=== PATIENT | male | born 1955 | race Caucasian/White ===

== ENCOUNTER 2018-06-14 13:07 | Outpatient (CLI) | payer BC ==
--- NOTE | 2018-06-14 15:33 | RAD ---
PA AND LATERAL CHEST X-RAY: 06/14/2018 HISTORY: Wheezing. COMPARISON: 10/05/2013 FINDINGS: The cardiac silhouette is at the upper limits of normal to borderline enlarged. The pulmonary vascul ature is within normal limits. There is mild symmetric biapical pleural thickening noted. There is minimal patchy density at the left lung base, which could be related to atelectasis, but developing p neumonitis cannot be excluded. There is minimal linear scarring versus atelectasis at the right lung base. A tiny nodular density overlies the right upper lung zone, stable from prior study, and may r epresent a small calcified granuloma. There has been no other interval change. IMPRESSION: Patchy increased density, left lung base, which could be related to either atelectasis or developing area of pneumonitis. Follow-up evaluation is recommended to ensure resolution. POS: STEPHANIE
== END 2018-06-14 13:08 | disposition home or self-care (01) ==
LOC: RAD-FRANK 13:07
PROVIDERS: ATTEND Nurse Practitioner Family
DX: R06.2 Wheezing (principal); R68.89 Other general symptoms and signs; F17.200 Nicotine dependence, unspecified, uncomplicated; R05 Cough; R91.8 Other nonspecific abnormal finding of lung field
CPT/HCPCS: 71046

== ENCOUNTER 2018-07-05 10:29 | Outpatient (CLI) | payer BC ==
--- NOTE | 2018-07-05 13:05 | RAD ---
CHEST TWO VIEWS: HISTORY: Cough. COMPARISON: 06/14/2018 FINDINGS: Heart size is normal. Lungs are clear. Mild biapical pleural thickening. The previously noted mini mal parenchymal changes in the left lower lobe have resolved. IMPRESSION: No significant acute intrathoracic disease. POS: [facility]
== END 2018-07-05 10:30 | disposition home or self-care (01) ==
LOC: RAD-FRANK 10:29
PROVIDERS: ATTEND Nurse Practitioner Family
DX: J18.9 Pneumonia, unspecified organism (principal); R05 Cough; F17.200 Nicotine dependence, unspecified, uncomplicated
CPT/HCPCS: 71046

== ENCOUNTER 2021-04-05 12:02 | Outpatient (CLI) | payer MEDICARE, BC | END 2021-04-05 12:03 | disposition home or self-care (01) | LOC: BICRAD 12:02 | PROVIDERS: ATTEND Specialist | DX: R09.1 Pleurisy (principal) | CPT/HCPCS: 71046 ==

== ENCOUNTER 2021-04-09 08:37 | Outpatient (CLI) | payer BC, MEDICARE ==
[2021-04-09] MEDS ORDERED: Iopamidol 370 76% 100 ML VIAL ONE (08:43)
== END 2021-04-09 08:38 | disposition home or self-care (01) ==
LOC: CT 08:37
PROVIDERS: ATTEND Specialist
DX: R91.8 Other nonspecific abnormal finding of lung field (principal); I25.10 Atherosclerotic heart disease of native coronary artery without angina pectoris; J90 Pleural effusion, not elsewhere classified; J98.11 Atelectasis
CPT/HCPCS: 71260; 82565; Q9967

== ENCOUNTER 2023-11-05 13:53 | Outpatient (CLI) | payer BC, MEDICARE | END 2023-11-05 13:54 | disposition home or self-care (01) | LOC: BICCT 13:53 | PROVIDERS: ATTEND Physician Assistant Medical | DX: R10.13 Epigastric pain (principal); R14.0 Abdominal distension (gaseous); R19.7 Diarrhea, unspecified | CPT/HCPCS: 74160; 82565 ==

== ENCOUNTER 2024-01-06 10:56 | Outpatient (CLI) | payer BC, MEDICARE | END 2024-01-06 10:57 | disposition home or self-care (01) | LOC: ULT 10:56 | PROVIDERS: ATTEND Internal Medicine Gastroenterology | DX: R13.10 Dysphagia, unspecified (principal); K21.9 Gastro-esophageal reflux disease without esophagitis; R10.13 Epigastric pain; R14.0 Abdominal distension (gaseous); K76.0 Fatty (change of) liver, not elsewhere classified; R16.0 Hepatomegaly, not elsewhere classified | CPT/HCPCS: 76705 ==

== ENCOUNTER 2024-10-19 10:57 | Outpatient (CLI) | payer BC, MEDICARE | END 2024-10-19 10:58 | disposition home or self-care (01) | LOC: ULT 10:57 | PROVIDERS: ATTEND Specialist | DX: R31.9 Hematuria, unspecified (principal); K76.0 Fatty (change of) liver, not elsewhere classified | CPT/HCPCS: 76770 ==